=== PATIENT | female | born 1975 | race African-American/Black ===

== ENCOUNTER 2017-01-20 06:44 | Day surgery (SDC) | payer OTHER ==
[2017-01-20] MEDS ORDERED: TETRACAINE 0.5% OPHTH 1 DOSE AFFEYE ONE ×5 (07:00→09:30)
[2017-01-20] MEDS ORDERED: VIGAMOX 0.5% OPHTH 1 DOSE AFFEYE ONE ×5 (07:05→09:45)
[2017-01-20] MEDS ORDERED: PROLENSA OPHTH 1 DOSE AFFEYE ONE (07:16)
[2017-01-20] MEDS ORDERED: ALPHAGAN-P OPHTH 1 DOSE AFFEYE ONE (07:17)
[2017-01-20] MEDS ORDERED: AK-DILATE 2.5% OPHTH 1 DOSE OP ONE ×3 (07:18→07:20)
[2017-01-20] MEDS ORDERED: MYDRIACIL OPHTH 1 DOSE AFFEYE ONE ×3 (07:18→07:20)
[2017-01-20] MEDS ORDERED: CYCLOGYL 1% OPHTH 1 DOSE OP ONE ×3 (07:18→07:20)
[2017-01-20] MEDS ORDERED: NS 500 ML IV 500 ML IV ONE (07:18)
[2017-01-20] MEDS ORDERED: BETADINE OPHTH SOLN 5% EACHEYE ONE ×2 (08:45→09:10)
[2017-01-20] MEDS ORDERED: ADRENALINE CHL INJ IJ ONE ×2 (08:46→09:30)
[2017-01-20] MEDS ORDERED: DUOVISC IO ONE ×2 (08:46→09:30)
[2017-01-20] MEDS ORDERED: XYLOCAINE-MPF 1% IJ ONE ×2 (08:46→09:30)
[2017-01-20] MEDS ORDERED: BSS OPHTH (PLAIN) 500 ML with VANCOMYCIN HCL 500 MG VIAL 25 MG, ADRENALINE CHL INJ 1 MG IR ONE ×3 (08:47)
[2017-01-20 10:30] VITALS: BP 123/82
== END 2017-01-20 10:10 | disposition home or self-care (01) ==
LOC: SURG1 06:44
PROVIDERS: ATTEND Ophthalmology
PROC: 08RJ3JZ Replacement of Right Lens with Synthetic Substitute, Percutaneous Approach (ICD-10-PCS; principal; 2017-01-20 08:15)
PROC: 08DJ3ZZ Extraction of Right Lens, Percutaneous Approach (ICD-10-PCS; principal; 2017-01-20 08:15)
DX: H25.011 Cortical age-related cataract, right eye (principal); H25.041 Posterior subcapsular polar age-related cataract, right eye
CPT/HCPCS: A4217; J0170; J3370